=== PATIENT | female | born 1980 | race Caucasian/White ===

== ENCOUNTER 2017-07-07 21:26 | Emergency (ER) | payer SELFPAY ==
[~2017-07-07] VITALS: Ht 165.1 cm; Wt 59.1 kg
[~2017-07-07 21:26] MED LIST: AMOX1TAB12 PO; DOCU-131 PO; HYDR-3237 PO; LORA-446 PO
[2017-07-07] MEDS ORDERED: DIPHENHYDRAMINE 25 MG CAPSULE ONE (22:24)
[2017-07-07] MEDS ORDERED: DEXAMETHASONE 4 MG TABLET ONE (22:24)
[2017-07-07] MEDS ORDERED: DIPHENHYDRAMINE 25 MG CAPSULE PO ONE (22:30)
[2017-07-07] MEDS ORDERED: DEXAMETHASONE 4 MG TABLET PO ONE (22:30)
[2017-07-07 22:50] VITALS: BP 124/78
== END 2017-07-07 22:52 | disposition home or self-care (01) ==
LOC: ED 22:41
DX: K02.9 Dental caries, unspecified (principal); R22.0 Localized swelling, mass and lump, head; F41.9 Anxiety disorder, unspecified
CPT/HCPCS: 99283; Q0163